=== PATIENT | female | born 1965 | race Native Hawaiian/Other Pacific Islander ===

== ENCOUNTER 2018-01-31 11:23 | Outpatient (CLI) | payer OTHER ==
[~2018-01-31 11:23] MED LIST: GLIP10TA55 PO; METF500T PO
== END 2018-01-31 21:48 | disposition home or self-care (01) ==
LOC: LABW 11:23
DX: B35.1 Tinea unguium (principal)
CPT/HCPCS: 36415; 84450; 84460

== ENCOUNTER 2018-04-11 20:05 | Emergency (ER) | payer OTHER ==
[~2018-04-11] VITALS: Ht 162.6 cm; Wt 95.3 kg
[2018-04-11 20:17] VITALS: TEMP 97.7
[2018-04-11 20:52] LABS: PLATELET COUNT 225 K/uL (152-353)
[2018-04-11 21:04] LABS: POTASSIUM 4.5 mmol/L (3.6-5.2)
[2018-04-11 21:30] VITALS: BP 104/72
[2018-04-24] MEDS ORDERED: OMEPRAZOLE10 MG PO (20:00)
[2018-04-24] MEDS ORDERED: ZANTAC300 MG PO (20:01)
[2018-04-24] MEDS ORDERED: KETOROLAC10 MG PO (20:02)
[2018-04-24] MEDS ORDERED: KRISTALOSE10 GM PO (20:03)
[2018-04-24] MEDS ORDERED: AMIT25TA22 PO (20:04)
[2018-04-24] MEDS ORDERED: ASPIRIN 81 LOW81 MG PO (20:05)
[2018-04-24] MEDS ORDERED: LIPITOR80 MG PO (20:05)
[2018-04-24] MEDS ORDERED: GABA300C2 PO (20:07)
[2018-04-24] MEDS ORDERED: LISITAB PO (20:09)
[2018-04-24] MEDS ORDERED: METFORMIN ER1000 MG PO (20:10)
[2018-04-24] MEDS ORDERED: LEVEMIR FL100 UNIT/M SC (20:11)
[2018-04-24] MEDS ORDERED: METOPROLOL25 M1 PO (20:11)
== END 2018-04-11 21:35 | disposition home or self-care (01) ==
LOC: ED 20:05
DX: N39.0 Urinary tract infection, site not specified (principal); N28.89 Other specified disorders of kidney and ureter; N83.291 Other ovarian cyst, right side
CPT/HCPCS: 36415; 80053; 81000; 85027; 87088; 99283

== ENCOUNTER 2018-06-05 11:55 | Emergency (ER) | payer OTHER ==
[~2018-06-05] VITALS: Ht 162.6 cm; Wt 99.8 kg
[2018-06-05 11:55] VITALS: TEMP 98.1
[~2018-06-05 11:55] MED LIST changes: +AMIT25TA22 PO; +ASPIRIN 81 LOW81 MG PO; +GABA300C2 PO; +KETOROLAC10 MG PO; +KRISTALOSE10 GM PO; +LEVEMIR FL100 UNIT/M SC; +LIPITOR80 MG PO; +LISITAB PO; +METFORMIN ER1000 MG PO; +METOPROLOL25 M1 PO; +OMEPRAZOLE10 MG PO; +ZANTAC300 MG PO
[2018-06-05 12:34] LABS: PLATELET COUNT 180 K/uL (152-353)
[2018-06-05 12:54] LABS: POTASSIUM 3.9 mmol/L (3.6-5.2); SODIUM 135 mmol/L (136-145)
[2018-06-05 16:00] VITALS: BP 108/72
== END 2018-06-05 16:10 | disposition home or self-care (01) ==
LOC: ED 11:59
PROVIDERS: Emergency Medicine
DX: R07.89 Other chest pain (principal); R00.0 Tachycardia, unspecified
CPT/HCPCS: 80053; 82550; 82553; 84484; 85027; 85379; 93005; 99283; J1815

== ENCOUNTER 2018-06-19 14:24 | Emergency (ER) | payer OTHER ==
[~2018-06-19] VITALS: Ht 162.6 cm; Wt 99.8 kg
[2018-06-19 15:40] VITALS: BP 102/63; TEMP 97.7
== END 2018-06-19 15:40 | disposition home or self-care (01) ==
LOC: ED 14:24
DX: S20.219A Contusion of unspecified front wall of thorax, initial encounter (principal); W18.39XA Other fall on same level, initial encounter; Y92.89 Other specified places as the place of occurrence of the external cause
CPT/HCPCS: 99283

== ENCOUNTER 2018-10-10 11:37 | Outpatient (CLI) | payer OTHER | END 2018-10-10 21:35 | disposition home or self-care (01) | LOC: LABW 11:37 | DX: M25.519 Pain in unspecified shoulder (principal) | CPT/HCPCS: 36415; 85651 ==

== ENCOUNTER 2018-10-16 23:31 | Emergency (ER) | payer OTHER ==
[~2018-10-16] VITALS: Ht 162.6 cm; Wt 93.4 kg
[2018-10-17 00:08] LABS: PLATELET COUNT 275 K/uL (152-353)
[2018-10-17 00:17] LABS: POTASSIUM 3.9 mmol/L (3.6-5.2)
[2018-10-17 00:40] VITALS: BP 98/57; TEMP 97.7
== END 2018-10-17 00:43 | disposition home or self-care (01) ==
LOC: ED 23:31
PROVIDERS: Internal Medicine
DX: K52.89 Other specified noninfective gastroenteritis and colitis (principal); R11.2 Nausea with vomiting, unspecified; D72.828 Other elevated white blood cell count
CPT/HCPCS: 36415; 80053; 85027; 96372; 99283; J2405

== ENCOUNTER 2019-05-01 15:30 | Outpatient (CLI) | payer OTHER ==
[2019-05-01 15:46] LABS: PLATELET COUNT 217 K/uL (152-353)
== END 2019-05-01 23:38 | disposition home or self-care (01) ==
LOC: LABW 15:30
PROVIDERS: Internal Medicine Cardiovascular Disease
DX: R07.9 Chest pain, unspecified (principal)
CPT/HCPCS: 36415; 85027; 85651

== ENCOUNTER 2019-06-27 08:11 | Outpatient (CLI) | payer OTHER | END 2019-06-27 19:43 | disposition home or self-care (01) | LOC: NM 08:11 | DX: R07.9 Chest pain, unspecified (principal) | CPT/HCPCS: A9500; J2785 ==

== ENCOUNTER 2020-04-23 12:57 | Outpatient (CLI) | payer OTHER ==
[2020-04-23 13:34] LABS: PLATELET COUNT 135 K/uL (152-353)
[2020-04-23 13:51] LABS: POTASSIUM 4.1 mmol/L (3.6-5.2)
== END 2020-04-23 22:54 | disposition home or self-care (01) ==
LOC: LABW 12:57
PROVIDERS: Physician Assistant
DX: E11.9 Type 2 diabetes mellitus without complications (principal); E78.5 Hyperlipidemia, unspecified
CPT/HCPCS: 36415; 80053; 80061; 82672; 83036; 84436; 84443; 84480; 85027

== ENCOUNTER 2020-06-10 11:13 | Outpatient (CLI) | payer OTHER | END 2020-06-11 00:01 | disposition home or self-care (01) | LOC: RAD 11:13 | DX: R07.9 Chest pain, unspecified (principal) | CPT/HCPCS: 36415; 85651 ==

== ENCOUNTER 2021-04-19 09:22 | Outpatient (CLI) | payer OTHER | END 2021-04-19 21:22 | disposition home or self-care (01) | LOC: MRI 09:22 | PROVIDERS: ATTEND Orthopaedic Surgery Orthopaedic Surgery of the Spine | DX: M54.12 Radiculopathy, cervical region (principal); M48.02 Spinal stenosis, cervical region; M50.222 Other cervical disc displacement at C5-C6 level; M47.896 Other spondylosis, lumbar region; M51.36 Other intervertebral disc degeneration, lumbar region; M48.061 Spinal stenosis, lumbar region without neurogenic claudication; M54.16 Radiculopathy, lumbar region ==

== ENCOUNTER 2021-12-02 08:47 | Outpatient (CLI) | payer OTHER | END 2021-12-02 19:13 | disposition home or self-care (01) | LOC: US 08:47 | PROVIDERS: ATTEND Nurse Practitioner Family | DX: R10.11 Right upper quadrant pain (principal) ==

== ENCOUNTER 2022-09-27 12:10 | Outpatient (CLI) | payer OTHER ==
[2022-09-27 12:36] LABS: PLATELET COUNT 149 K/uL (152-353)
== END 2022-09-27 19:04 | disposition home or self-care (01) ==
LOC: LABW 12:10
PROVIDERS: ATTEND Internal Medicine Cardiovascular Disease
DX: Z79.899 Other long term (current) drug therapy (principal)
CPT/HCPCS: 36415; 80053; 80061; 85027

== ENCOUNTER 2023-01-03 11:53 | Outpatient (CLI) | payer OTHER | END 2023-01-03 19:21 | disposition home or self-care (01) | LOC: RAD 11:53 | PROVIDERS: ATTEND Nurse Practitioner | DX: M25.552 Pain in left hip (principal) ==

== ENCOUNTER 2023-03-08 07:00 | Emergency (ER) | payer OTHER ==
[~2023-03-08] VITALS: Ht 162.6 cm; Wt 88.0 kg
[2023-03-08 07:00] VITALS: BP 121/60; TEMP 98
== END 2023-03-08 07:48 | disposition home or self-care (01) ==
LOC: ED 07:00
DX: L03.90 Cellulitis, unspecified (principal)
CPT/HCPCS: 96372; 99283; J1885